=== PATIENT | female | born 1995 | race Native Hawaiian/Other Pacific Islander ===

== ENCOUNTER 2021-02-07 11:54 | Emergency (ER) | payer OTHER ==
[~2021-02-07] VITALS: Ht 160 cm; Wt 56.7 kg
[2021-02-07 14:00] VITALS: BP 128/84; TEMP 97.7
== END 2021-02-07 14:00 | disposition home or self-care (01) ==
LOC: ED 11:54
DX: H10.89 Other conjunctivitis (principal); F17.290 Nicotine dependence, other tobacco product, uncomplicated
CPT/HCPCS: 81025; 87651; 99283